=== PATIENT | male | born 1940 | race Caucasian/White ===

== ENCOUNTER → 2017-05-16 | Outpatient (CLI) | payer MEDICARE, OTHER ==
[2017-05-16 12:10] LABS: INFLUENZA A ANTIGEN None Detected (None Detect)
== END ==
LOC: M.LAB 11:10
DX: J11.1 Influenza due to unidentified influenza virus with other respiratory manifestations (principal)

== ENCOUNTER → 2018-11-19 | Outpatient (CLI) | payer MEDICARE, OTHER ==
[2018-11-19 11:29] LABS: ABSOLUTE BASOPHILS 0.1 thou/uL (0.0-0.2); ABSOLUTE EOSINOPHILS 0.1 thou/uL (0.0-0.7); ABSOLUTE LYMPHOCYTES 1.4 thou/uL (0.8-5.3); ABSOLUTE MONOCYTES 0.5 thou/uL (0.0-1.2); ABSOLUTE NEUTROPHILS 4.9 thou/uL (1.6-8.1); BASOPHILS 0.9 %; EOSINOPHILS 1.8 %; HEMOGLOBIN 16.3 gm/dL (14.0-18.0); LYMPHOCYTES 20.2 %; MCH 30.6 pg (26.0-34.0); MCV 90.1 fL (80.0-100.0); MONOCYTES 7.8 %; MPV 7.9 fl. (7.2-11.1); NUCLEATED RBCS 0 /100WBC; PLATELET COUNT* 207 thou/uL (150-400); POLYS 69.3 %; RBC 5.32 mil/uL (4.50-6.00)
[2018-11-19 12:44] LABS: ESR (SEDRATE) 2 mm/hr (0-20)
== END ==
LOC: M.LAB 11-18 17:00
DX: I10 Essential (primary) hypertension (principal); E11.9 Type 2 diabetes mellitus without complications; Z86.73 Personal history of transient ischemic attack (TIA), and cerebral infarction without residual deficits

== ENCOUNTER 2020-09-04 15:52 | Emergency (ER) | payer MEDICARE ==
[~2020-09-04] VITALS: Ht 190.5 cm; Wt 102.1 kg
[2020-09-04] MEDS ORDERED: HYDROCHLOROTHIA25 M1 PO (16:09)
[2020-09-04] MEDS ORDERED: KLOR-CON 10 ER10 MEQ PO (16:10)
[2020-09-04] MEDS ORDERED: RAMIPRIL5 MG PO (16:10)
[2020-09-04] MEDS ORDERED: AMITRIPTYLINE H75 M1 PO (16:11)
[2020-09-04] MEDS ORDERED: ALLOPURINOL 10100 M1 PO (16:11)
[2020-09-04] MEDS ORDERED: ASA81BEC PO (16:11)
[2020-09-04 16:47] LABS: ABSOLUTE BASOPHILS 0.1 thou/uL (0.0-0.2); ABSOLUTE EOSINOPHILS 0.1 thou/uL (0.0-0.7); ABSOLUTE LYMPHOCYTES 1.4 thou/uL (0.8-5.3); ABSOLUTE NEUTROPHILS 7.2 thou/uL (1.6-8.1); BASOPHILS 0.6 %; EOSINOPHILS 1.2 %; HEMATOCRIT 43.7 % (42.0-52.0); HEMOGLOBIN 14.9 gm/dL (14.0-18.0); LYMPHOCYTES 14.2 %; MCH 30.2 pg (26.0-34.0); MCHC 34.1 g/dL (28.0-37.0); MCV 88.6 fL (80.0-100.0); MONOCYTES 9.7 %; MPV 7.7 fl. (7.2-11.1); NUCLEATED RBCS 0 /100WBC; PLATELET COUNT* 189 thou/uL (150-400); POLYS 74.3 %; RBC 4.93 mil/uL (4.50-6.00); RDW-CV 13.6 % (10.5-14.5); WBC 9.8 thou/uL (4.0-11.0)
[2020-09-04 16:53] LABS: CALCIUM 8.7 mg/dL (8.5-10.1); CREATININE 0.9 mg/dL (0.6-1.3); URINE BILIRUBIN NEGATIVE (Negative); URINE BLOOD NEGATIVE (Negative); URINE CLARITY CLEAR; URINE COLOR YELLOW; URINE GLUCOSE-RANDOM NEGATIVE (Negative); URINE KETONES NEGATIVE (Negative); URINE LEUKOCYTES-REFLEX NEGATIVE (Negative); URINE NITRITE-REFLEX NEGATIVE (Negative); URINE PROTEIN NEGATIVE (Negative); URINE SPECIFIC GRAVITY >= 1.030 (1.005-1.030); URINE UROBILINOGEN 0.2 E.U./dl (0.2-1.0)
[2020-09-04 16:58] LABS: ALBUMIN 3.5 g/dL (3.4-5.0); TOTAL BILIRUBIN 1.1 mg/dL (<0.1-1.0); TOTAL PROTEIN 7.1 g/dL (6.4-8.2)
[2020-09-04 19:13] VITALS: BP 142/72
--- NOTE | 2020-09-05 09:53 | EKG ---
[place] [address] ELECTROCARDIOGRAM REPORT Name: ERICKYE D Room: [facility]#: [id number] Admission: 09/04/20 Attend Phys: Discharge: 09/04/20 Date of : 42 Date of Service: 09/04/20 1632 Report #: [id number] THIS REPORT FOR: //name// [facility] ED Test Date: 2020-09-04 Test Time: 16:32:13 Pat Name: YE SUAREZ Department: Room: Gender: Tax Manager: [facility] : 1940 Requested By: Arvin Trinidad Order Number: [id number] MD: Neo Jmienez Measurements Intervals [place] Rate: 61 P: [place]: QRS: -9 QRSD: 120 T: 1 QT: 445 QTc: 449 Interpretive Statements Atrial fibrillation IVCD, consider atypical RBBB No previous ECG available for comparison Electronically Signed On 09-05-2020 9:53:31 CDT by Neo Jimenez [email or web address] <ELECTRONICALLY SIGNED> By: Neo Jimenez MD, [facility] 09/05/20 [id number] Neo Jimenez MD, [facility] /EPI
== END 2020-09-04 19:14 | disposition home or self-care (01) ==
LOC: M.ERS 15:52
PROVIDERS: Physician Assistant
DX: R10.31 Right lower quadrant pain (principal); R10.32 Left lower quadrant pain; I11.0 Hypertensive heart disease with heart failure; I50.9 Heart failure, unspecified; Z86.73 Personal history of transient ischemic attack (TIA), and cerebral infarction without residual deficits; Z79.82 Long term (current) use of aspirin